=== PATIENT | male | born 1965 | race Caucasian/White ===

== ENCOUNTER → 2017-11-02 | Outpatient (CLI) | payer BC | LOC: M WUC 18:39 | DX: M79.641 Pain in right hand (principal) | CPT/HCPCS: 73130 ==

== ENCOUNTER 2019-04-24 16:07 | Emergency (ER) | payer BC ==
[~2019-04-24] VITALS: Ht 180.3 cm; Wt 68.5 kg
[2019-04-24 16:07] VITALS: BP 131/65
[~2019-04-24 16:07] MED LIST: AMBI10TA OR; CITA20TA6 PO; CLAR10CA3 PO; COLA100C2; FERR324T5; FLAG500T; FLOM0.4C39 PO; LEVA500T; MULTIVIT PO; OSTETAB4 PO; PAXI20TA; PAXI20TA OR; PAXI30TA OR; PERC5TAB8 PO; PROT1TAB2; SKEL800T5 OR; SUMA50TA2 PO; TRAM50TA2 PO; [UNRECOGNIZED DRUG - OTHER]
[2019-04-24] MEDS ORDERED: SERT-155 (16:13)
[2019-04-24] MEDS ORDERED: diphenhydrAMINE 50 MG CAP PO ONE (17:15)
[2019-04-24] MEDS ORDERED: predniSONE 20 MG TAB PO ONE (17:15)
[2019-04-24] MEDS ORDERED: PRED20TA PO (17:39)
[2019-04-24] MEDS ORDERED: BENA25CA4 PO (17:40)
== END 2019-04-24 18:32 | disposition home or self-care (01) ==
LOC: M ED 16:07
DX: S00.561A Insect bite (nonvenomous) of lip, initial encounter (principal); T63.441A Toxic effect of venom of bees, accidental (unintentional), initial encounter; Y92.9 Unspecified place or not applicable; Y99.8 Other external cause status; Z91.030 Bee allergy status; J34.2 Deviated nasal septum; F41.9 Anxiety disorder, unspecified; F42.9 Obsessive-compulsive disorder, unspecified; M54.9 Dorsalgia, unspecified; R51 Headache; Z79.52 Long term (current) use of systemic steroids; Z79.899 Other long term (current) drug therapy

== ENCOUNTER → 2021-03-24 | Outpatient (CLI) | payer OTHER ==
[~2021-03-24] MED LIST changes: +BENA25CA4 PO; +PRED20TA PO; +SERT50TA29
--- NOTE | 2021-03-24 14:02 | REPVR ---
PROCEDURE INFORMATION: Exam: MR Cervical Spine Without Contrast Exam date and time: 03/24/2021 12:38 PM Age: 55 years old Clinical indication: Radicular pain (radiculopathy); Cervical region; Additional info: Radiculopathy cervical region TECHNIQUE: Imaging protocol: Multiplanar magnetic resonance images of the cervical spine without contrast. COMPARISON: No relevant prior studies available. FINDINGS: Vertebrae: I see no evidence of acute fracture line, high-grade compression deformity, worrisome malalignment, or marrow edema. Minimal scoliosis is noted. Mild facet hypertrophic changes at multiple levels most pronounced at C6-C7. Spinal cord: No abnormal cord signal. Spinal epidural space: No epidural fluid. Disc spaces: Disc desiccation at multiple levels with relative preservation of the disc spaces. C2-C3: At C2-C3, facet hypertrophic changes contribute to mild foraminal encroachment on the right. C3-C4: C3-C4, mild broad-based bulging of the disc contributes to mild foraminal encroachment on the right with minimal central stenosis. C4-C5: At C4-C5, mild bulging disc/disc osteophyte complex is appreciated with mild central stenosis along with moderate bilateral foraminal encroachment. C5-C6: At C5-C6, spondylitic changes are noted with mild central stenosis and mild right-sided foraminal encroachment. C6-C7: At C6-C7, there is a broadly bulging disc with mild to moderate central stenosis as well as mild bilateral foraminal encroachment. C7-T1: At C7-T1, spondylitic changes and a bulging disc left greater than right contribute to minimal central stenosis and minimal bilateral foraminal encroachment. Other bones/joints: The skull base is unremarkable. Soft tissues: No prevertebral soft tissue swelling. Paraspinal muscular atrophy is present without paraspinal mass or hematoma. Vertebral arteries: Expected flow voids in the vertebral arteries. IMPRESSION: Degenerative changes with multilevel central and foraminal encroachment as described, the former most pronounced at C6-C7. Electronically signed by: Zan Antoine On 03/24/2021 14:02:15 PM
== END ==
LOC: M RAD 12:33
PROVIDERS: ATTEND Psychiatry & Neurology Neurology
DX: M50.11 Cervical disc disorder with radiculopathy, high cervical region (principal); M50.121 Cervical disc disorder at C4-C5 level with radiculopathy; M50.123 Cervical disc disorder at C6-C7 level with radiculopathy; M50.13 Cervical disc disorder with radiculopathy, cervicothoracic region; M48.02 Spinal stenosis, cervical region

== ENCOUNTER → 2022-07-30 | Outpatient (CLI) | payer OTHER, BC | LOC: M WUC 13:08 | PROVIDERS: ATTEND Physician Assistant | DX: Z12.5 Encounter for screening for malignant neoplasm of prostate (principal) ==

== ENCOUNTER → 2022-07-30 | Outpatient (CLI) | payer OTHER, BC ==
[2022-07-30 16:49] LABS: BASO % 0.7 % (0.0-1.0); EOS # 0.1 10^3/uL (0.0-0.5); EOS % 1.8 % (0.0-3.0); HEMATOCRIT 40.7 % (42.0-52.0); HEMOGLOBIN 13.3 g/dl (13.5-17.5); LYMPH # 1.1 10^3/uL (1.5-5.0); LYMPH % 25.4 % (24.0-44.0); MEAN CORPUSCULAR HEMOGLOBIN 29.2 pg (27.0-33.0); MEAN CORPUSCULAR HGB CONC 32.7 g/dl (32.0-36.5); MEAN CORPUSCULAR VOLUME 89.5 fl (80.0-96.0); MONO # 0.4 10^3/uL (0.0-0.8); MONO % 9.7 % (2.0-8.0); NEUTROPHILS # 2.7 10^3/uL (1.5-8.5); NEUTROPHILS % 62.2 % (36.0-66.0); PLATELET COUNT, AUTOMATED 210 10^3/uL (150-450); RED BLOOD COUNT 4.55 10^6/uL (4.30-6.10); WHITE BLOOD COUNT 4.3 10^3/uL (4.0-10.0)
== END ==
LOC: M WUC 13:05
PROVIDERS: ATTEND Registered Nurse
DX: M06.09 Rheumatoid arthritis without rheumatoid factor, multiple sites (principal); Z79.899 Other long term (current) drug therapy; D72.819 Decreased white blood cell count, unspecified

== ENCOUNTER → 2023-07-21 | Outpatient (CLI) | payer OTHER, BC | LOC: M WUC 11:47 | PROVIDERS: ATTEND Physician Assistant | DX: Z87.442 Personal history of urinary calculi (principal); M41.86 Other forms of scoliosis, lumbar region; R93.3 Abnormal findings on diagnostic imaging of other parts of digestive tract ==

== ENCOUNTER → 2023-08-13 | Outpatient (CLI) | payer BC | LOC: M RAD 09:11 | PROVIDERS: ATTEND Physician Assistant | DX: K80.20 Calculus of gallbladder without cholecystitis without obstruction (principal); N20.0 Calculus of kidney; R93.89 Abnormal findings on diagnostic imaging of other specified body structures ==

== ENCOUNTER → 2024-02-03 | Outpatient (CLI) | payer BC | LOC: M PLAIMG 11:18 | PROVIDERS: ATTEND Physician Assistant | DX: N20.0 Calculus of kidney (principal); K57.30 Diverticulosis of large intestine without perforation or abscess without bleeding; N40.0 Benign prostatic hyperplasia without lower urinary tract symptoms; M47.816 Spondylosis without myelopathy or radiculopathy, lumbar region; K80.20 Calculus of gallbladder without cholecystitis without obstruction; R91.1 Solitary pulmonary nodule ==

== ENCOUNTER → 2024-03-16 | Outpatient (REF) | payer BC ==
[~2024-03-16] MED LIST changes: +ARAV1TAB PO; +FOLI1TAB11 PO; +MULTTAB61 PO; +MV-M1CAP8 PO; +OSTE5TAB PO; -SERT50TA29; +SERT50TA29 PO; +TAMS1CAP17 PO; +VITA100093 PO; +ZOLP10TA2 PO
[2024-03-16 17:03] LABS: BASO % 0.7 % (0.0-1.0); EOS # 0.1 10^3/uL (0.0-0.5); EOS % 2.7 % (0.0-3.0); HEMATOCRIT 39.1 % (42.0-52.0); LYMPH # 1.3 10^3/uL (1.5-5.0); LYMPH % 44.2 % (24.0-44.0); MEAN CORPUSCULAR HEMOGLOBIN 29.4 pg (27.0-33.0); MEAN CORPUSCULAR HGB CONC 33.2 g/dl (32.0-36.5); MEAN CORPUSCULAR VOLUME 88.5 fl (80.0-96.0); MONO # 0.5 10^3/uL (0.0-0.8); MONO % 17.5 % (2.0-8.0); NEUTROPHILS % 34.9 % (36.0-66.0); PLATELET COUNT, AUTOMATED 197 10^3/uL (150-450); RED BLOOD COUNT 4.42 10^6/uL (4.30-6.10); WHITE BLOOD COUNT 2.9 10^3/uL (4.0-10.0)
== END ==
LOC: M LABWUC 16:10
PROVIDERS: ATTEND Registered Nurse
DX: D72.819 Decreased white blood cell count, unspecified (principal); Z79.899 Other long term (current) drug therapy; M06.09 Rheumatoid arthritis without rheumatoid factor, multiple sites

== ENCOUNTER → 2024-03-23 | Outpatient (CLI) | payer BC ==
[2024-03-23 12:28] LABS: APPEARANCE, URINE HAZY (CLEAR); BACTERIA, URINE AUTO 1+ (NEGATIVE); BILIRUBIN, URINE AUTO NEGATIVE (NEGATIVE); BLOOD, URINE BLOOD 3+ (NEGATIVE); COLOR, URINE YELLOW (YELLOW); GLUCOSE, URINE (UA) AUTO NEGATIVE (NEGATIVE); HEMOGLOBIN 12.9 g/dl (13.5-17.5); KETONE, URINE AUTO NEGATIVE (NEGATIVE); LEUKOCYTE ESTERASE, URINE AUTO 3+ (NEGATIVE); MEAN CORPUSCULAR HEMOGLOBIN 29.1 pg (27.0-33.0); MEAN CORPUSCULAR HGB CONC 33.1 g/dl (32.0-36.5); MEAN CORPUSCULAR VOLUME 87.8 fl (80.0-96.0); MUCUS, URINE SMALL (NEGATIVE); NITRITE, URINE AUTO NEGATIVE (NEGATIVE); PLATELET COUNT, AUTOMATED 198 10^3/uL (150-450); PROTEIN, URINE AUTO 2+ mg/dL (NEGATIVE); RBC, URINE AUTO 80 /HPF (0-3); RED BLOOD COUNT 4.44 10^6/uL (4.30-6.10); SQUAMOUS EPITHELIAL CELL UR AU 0 /HPF (0-6); UROBILINOGEN, URINE AUTO 0.2 mg/dL (0.0-2.0); WBC, URINE AUTO 65 /HPF (0-3); WHITE BLOOD COUNT 3.4 10^3/uL (4.0-10.0)
[2024-03-23 13:03] LABS: BLOOD UREA NITROGEN 7 MG/DL (9-23); CALCIUM LEVEL 8.6 MG/DL (8.3-10.6); CARBON DIOXIDE LEVEL 34 MMOL/L (20-31); CHLORIDE LEVEL 106 MMOL/L (98-107); CREATININE FOR GFR 0.77 MG/DL (0.70-1.30); GLOMERULAR FILTRATION RATE > 60.0 (>49); GLUCOSE, FASTING 77 MG/DL (74-106); POTASSIUM SERUM 3.9 MMOL/L (3.5-5.1); SODIUM LEVEL 142 MMOL/L (136-145)
== END ==
LOC: M WUC 10:18
PROVIDERS: ATTEND Physician Assistant
DX: Z01.818 Encounter for other preprocedural examination (principal)

== ENCOUNTER 2024-03-30 06:42 | Day surgery (SDC) | payer BC ==
[~2024-03-30] VITALS: Ht 177.8 cm; Wt 64.9 kg
[2024-03-30] MEDS ORDERED: LR 1,000 ML IV SCH (07:10)
[2024-03-30] MEDS ORDERED: LIDOCAINE 2% 100MG/5ML SDV (FOR ANES.) As Ordered ONE (08:43)
[2024-03-30] MEDS ORDERED: propofoL 200 MG/20 ML VIAL As Ordered ONE (08:43)
[2024-03-30] MEDS ORDERED: MIDAZOLAM INJ 2MG/2ML VIAL As Ordered ONE (08:43)
[2024-03-30] MEDS ORDERED: ONDANSETRON 4MG 2ML VIAL As Ordered ONE (08:43)
[2024-03-30] MEDS ORDERED: fentaNYL 100 MCG/2 ML INJECTION As Ordered ONE (08:44)
[2024-03-30] MEDS: ceFAZolin SOD 2 GM in IV 1 EA IV ONE (09:18)
[2024-03-30] MEDS ORDERED: ACETAMINOPHEN 1000MG 100ML IV BAG As Ordered ONE (09:33)
[2024-03-30] MEDS: ISOVUE-300 61% 100ML VIAL As Ordered ONE (09:37)
[2024-03-30] MEDS ORDERED: ePHEDrine SULFATE 25 MG/5 ML(5MG/ML) SYRINGE As Ordered ONE (09:38)
[2024-03-30] MEDS ORDERED: dexmedeTOMIDine (4MCG/ML)200MCG/50ML BTL (PRECEDEX) As Ordered ONE (10:27)
[2024-03-30] MEDS ORDERED: fentaNYL 100 MCG/2 ML INJECTION IV PRN (11:15)
[2024-03-30] MEDS: ONDANSETRON 4MG 2ML VIAL IV PRN (11:43)
[2024-03-30] MEDS: diphenhydrAMINE 50MG/ML VIAL IV ONE (11:55)
[2024-03-30] MEDS ORDERED: PERCOCET 5MG/325MG TAB PO PRN (12:00)
[2024-03-30] MEDS: oxyCODONE 5MG TAB PO PRN (12:28)
[2024-03-30 13:11] VITALS: BP 121/65; TEMP 97.8; O2SAT 100
== END 2024-03-30 13:57 | disposition home or self-care (01) ==
LOC: M SDC 06:42
PROVIDERS: ATTEND Urology
DX: N20.2 Calculus of kidney with calculus of ureter (principal); G43.909 Migraine, unspecified, not intractable, without status migrainosus; G47.00 Insomnia, unspecified; F32.A Depression, unspecified; D41.9 Neoplasm of uncertain behavior of unspecified urinary organ; Z91.030 Bee allergy status; Z79.899 Other long term (current) drug therapy
CPT/HCPCS: 52356; 76000; C2617; J0131; J0690; J1100; J1200; J2250; J2405; J3010; Q9967

== ENCOUNTER → 2024-04-26 | Outpatient (CLI) | payer BC | LOC: M WUC 15:27 | PROVIDERS: ATTEND Urology | DX: N20.0 Calculus of kidney (principal) ==

== ENCOUNTER → 2024-07-26 | Outpatient (REF) | payer BC ==
[2024-07-26 18:48] LABS: BASO # 0.1 10^3/uL (0.0-0.2); BASO % 1.5 % (0.0-1.0); EOS # 0.2 10^3/uL (0.0-0.5); EOS % 5.3 % (0.0-3.0); HEMATOCRIT 40.3 % (42.0-52.0); HEMOGLOBIN 13.2 g/dl (13.5-17.5); LYMPH # 1.4 10^3/uL (1.5-5.0); LYMPH % 40.4 % (24.0-44.0); MEAN CORPUSCULAR HEMOGLOBIN 29.6 pg (27.0-33.0); MEAN CORPUSCULAR HGB CONC 32.8 g/dl (32.0-36.5); MEAN CORPUSCULAR VOLUME 90.4 fl (80.0-96.0); MONO # 0.5 10^3/uL (0.0-0.8); NEUTROPHILS # 1.3 10^3/uL (1.5-8.5); NEUTROPHILS % 37.8 % (36.0-66.0); PLATELET COUNT, AUTOMATED 200 10^3/uL (150-450); RED BLOOD COUNT 4.46 10^6/uL (4.30-6.10); WHITE BLOOD COUNT 3.4 10^3/uL (4.0-10.0)
[2024-07-26 19:14] LABS: IRON (FE) 72 UG/DL (65-175); LDH LACTATE DEHYDROGENASE 146 U/L (120-246)
[2024-07-26 19:15] LABS: TOTAL IRON BINDING CAPACITY 313 UG/DL (250-425)
[2024-07-26 19:16] LABS: ALBUMIN 3.9 G/DL (3.2-5.2); ALKALINE PHOSPHATASE 75 U/L (40-129); ALT/SGPT 31 U/L (7.0-40); AST/SGOT 26 U/L (<34); BILIRUBIN,TOTAL 0.4 MG/DL (0.3-1.2); BLOOD UREA NITROGEN 11 MG/DL (9-23); CALCIUM LEVEL 9.4 MG/DL (8.3-10.6); CARBON DIOXIDE LEVEL 32 MMOL/L (20-31); CHLORIDE LEVEL 104 MMOL/L (98-107); CREATININE FOR GFR 0.75 MG/DL (0.70-1.30); FERRITIN 23.5 NG/ML (10.5-307.3); GLOMERULAR FILTRATION RATE > 60.0 (>49); GLUCOSE, FASTING 86 MG/DL (74-106); POTASSIUM SERUM 4.1 MMOL/L (3.5-5.1); SODIUM LEVEL 144 MMOL/L (136-145); TOTAL PROTEIN 7.1 G/DL (5.7-8.2); VITAMIN B12 LEVEL 548 PG/ML (211-911)
== END ==
LOC: M LABWUC 16:52
PROVIDERS: ATTEND Physician Assistant
DX: D64.9 Anemia, unspecified (principal); D72.819 Decreased white blood cell count, unspecified

== ENCOUNTER → 2024-11-14 | Outpatient (CLI) | payer BC ==
[~2024-11-14] MED LIST changes: -FLOM0.4C39 PO; +TAMS-18 PO
== END ==
LOC: M WUC 11:36
PROVIDERS: ATTEND Urology
DX: N20.0 Calculus of kidney (principal)